=== PATIENT | female | born 1990 | race Caucasian/White ===

== ENCOUNTER 2024-02-11 10:50 | Outpatient (CLI) | payer BC, SELFPAY ==
--- NOTE | 2024-02-11 11:15 | CRLHL7_ITS ---
For Patients: As a result of the Century Cures Act, medical imaging exams and procedure reports are released immediately into your electronic medical record. You may view this report before your referring provider. If you have questions, please contact your health care provider. INDICATION: female infertility COMPARISON: none TECHNIQUE: 2D lau scale and color Doppler images were acquired of the pelvis using a transabdominal and transvaginal approach. FINDINGS: Sonographic images demonstrate a normal size and smooth outer contour of the uterus. Uterus measures 10.1 cm in length by 6.0 cm in AP diameter by 7.6 cm in transverse dimension. The myometrium has a normal uniform echotexture. The endometrial lining measures 22 mm in composite thickness. The right ovary measures 3.6 x 2.9 x 3.7 cm in size and the left ovary measures 3.3 x 2.1 x 2.0 cm. The ovaries demonstrate normal arterial and venous blood flow on color Doppler analysis. There are no suspicious fluid collections within the cul-de-sac. Simple cyst right ovary measures 2.5 x 2.1 x 2.2 cm. IMPRESSION: Endometrium diffusely thickened measuring 2.2 cm without endometrial fluid or uterine fibroid. Dictated by Farrukh Short MD @ 02/11/2024 11:42:45 AM (Electronically Signed)
== END 2024-02-11 10:51 | disposition home or self-care (01) ==
LOC: US 10:51
PROVIDERS: Visit Provider Registered Nurse
DX: N97.9 Female infertility, unspecified (principal); R93.89 Abnormal findings on diagnostic imaging of other specified body structures
CPT/HCPCS: 76830; 76856; 80061; 84144; 84443

== ENCOUNTER 2024-03-13 08:40 | Outpatient (CLI) | payer BC, SELFPAY | END 2024-03-13 08:41 | disposition home or self-care (01) | PROVIDERS: Visit Provider Registered Nurse | DX: N97.9 Female infertility, unspecified (principal) | CPT/HCPCS: 82670; 83001 ==

== ENCOUNTER 2024-03-31 13:35 | Outpatient (CLI) | payer BC, SELFPAY | END 2024-03-31 13:36 | disposition home or self-care (01) | LOC: NFLDREF 04-05 02:14 | PROVIDERS: Visit Provider Registered Nurse | DX: Z31.9 Encounter for procreative management, unspecified (principal) | CPT/HCPCS: 84144 ==

== ENCOUNTER 2024-04-21 13:22 | Outpatient (CLI) | payer BC, SELFPAY | END 2024-04-21 13:23 | disposition home or self-care (01) | PROVIDERS: Visit Provider Registered Nurse | DX: N97.9 Female infertility, unspecified (principal) | CPT/HCPCS: 84144 ==

== ENCOUNTER 2024-05-06 08:53 | Outpatient (CLI) | payer BC, SELFPAY ==
--- NOTE | 2024-05-06 09:15 | CRLHL7_ITS ---
For Patients: As a result of the Century Cures Act, medical imaging exams and procedure reports are released immediately into your electronic medical record. You may view this report before your referring provider. If you have questions, please contact your health care provider. Indication: INFERTILITY AND RECURRENT MISCARRIAGES Technique: Routine hysterosalpingogram. Fluoroscopic time 1.26 minutes IMPRESSION: No filling defect within the endometrial canal. Contrast extends through the fallopian tubes into the peritoneal cavity, left greater than right. Increased pressure required within the endometrial canal in order to visualize contrast through the fallopian tubes. Dictated by Farrukh Short MD @ 05/06/2024 12:33:49 PM (Electronically Signed)
--- NOTE | 2024-05-06 20:02 | P.GYNPRC_ITS ---
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 On fluoroscopy, Fallopian tubes are patent bilaterally and there is normal shape to uterine cavity Procedure Description: PROCEDURE: After obtaining verbal consent, the patient was placed in the dorsal lithotomy position on the x-ray table. An open-sided bivalve speculum was introduced into the vagina and the cervix easily visualized. The cervix and vagina were then prepped with Betadine. The anterior lip of the cervix was grasped with a single-tooth tenaculum for traction. A balloon tipped double- lumen catheter was then gently inserted through the cervical opening into the uterine cavity. The balloon was insufflated with 3 mL of air. The speculum was removed. The patient was repositioned in the supine position, covered, and the radiologist was called to the room. A hysterosalpingogram was then performed. A total of approximately 10 cc of Optiray 300 water soluble contrast dye was injected through the double-lumen catheter under more pressure than is usually required. There was immediate fill of the uterine cavity to the cornua; over time and additional injection of contrast dye, fill of both fallopian tubes and free spillage of dye on both sides was noted. The balloon was deflated. The catheter was removed. Tenaculum was also removed. The patient tolerated the procedure with some difficulty. She was discharged to home in stable condition and to [facility].
== END 2024-05-06 08:54 | disposition home or self-care (01) ==
LOC: RAD 08:53
PROVIDERS: Visit Provider Obstetrics & Gynecology
DX: N97.9 Female infertility, unspecified (principal); N96 Recurrent pregnancy loss; Z31.69 Encounter for other general counseling and advice on procreation
CPT/HCPCS: 58340; 74740; A4649; Q9967

== ENCOUNTER 2025-01-09 09:46 | Outpatient (CLI) | payer BC, SELFPAY | END 2025-01-09 09:47 | disposition home or self-care (01) | PROVIDERS: Visit Provider Obstetrics & Gynecology | DX: Z87.59 Personal history of other complications of pregnancy, childbirth and the puerperium (principal) | CPT/HCPCS: 84144; 84702 ==

== ENCOUNTER 2025-01-11 11:14 | Outpatient (CLI) | payer BC, SELFPAY ==
[2025-01-11 12:02] LABS: HCG Quantitative* 2699.50 mIU/mL
== END 2025-01-11 11:15 | disposition home or self-care (01) ==
PROVIDERS: Obstetrics & Gynecology; Visit Provider Obstetrics & Gynecology
DX: Z87.59 Personal history of other complications of pregnancy, childbirth and the puerperium (principal)
CPT/HCPCS: 36415; 84702

== ENCOUNTER 2025-01-15 11:41 | Outpatient (CLI) | payer BC, SELFPAY | END 2025-01-15 11:42 | disposition home or self-care (01) | LOC: NFLDREF 11:42 | PROVIDERS: Visit Provider Obstetrics & Gynecology | DX: Z87.59 Personal history of other complications of pregnancy, childbirth and the puerperium (principal) | CPT/HCPCS: 84702 ==

== ENCOUNTER 2025-01-27 12:16 | Outpatient (CLI) | payer BC, SELFPAY ==
--- NOTE | 2025-01-27 12:15 | CRLHL7_ITS ---
For Patients: As a result of the Cures Act, medical imaging exams and procedure reports are released immediately into your electronic medical record. You may view this report before your referring provider. If you have questions, please contact your health care provider. OB ULTRASOUND LESS THAN 14 WEEKS, 01/27/2025 CLINICAL HISTORY: Dating and viability. COMPARISON: None. TECHNIQUE: Realtime grayscale and color Doppler ultrasound of the uterus and ovaries from a transvaginal approach. Transvaginal ultrasound of the pelvis was performed to better evaluate the genitourinary organs such as the ovaries and/or endometrium. FINDINGS: Imaging: Transvaginal. LMP: 12/10/2024. AKIL by LMP: 09/16/2025. GA: 6 weeks 6 days. CRL: 1.1 cm, 7 weeks 1 day. AKIL 09/14/2025. FHR: 150 bpm. GEST SAC: 2.2 cm, appears WNL. YOLK SAC: 2.5 mm, appears WNL. RIGHT OV: 3.1 x 2.0 x 2.2 cm. CL. LEFT OV: 4.6 x 2.4 x 3.1 cm. IMPRESSION: Single living intrauterine measures 7 weeks 1 day with sonographic due date 09/14/2025. Farrukh Short M.D. Diagnostic Radiologist [email or web address] Transcribed: 1:57 pm DW/Dictated by: Farrukh Short MD @ 01/27/2025 1:06:00 PM (Electronically Signed)
== END 2025-01-27 12:17 | disposition home or self-care (01) ==
LOC: US 12:17
PROVIDERS: Visit Provider Registered Nurse
DX: Z34.91 Encounter for supervision of normal pregnancy, unspecified, first trimester (principal); Z3A.01 Less than 8 weeks gestation of pregnancy
CPT/HCPCS: 76817

== ENCOUNTER 2025-01-28 11:42 | Outpatient (CLI) | payer BC, SELFPAY ==
[2025-01-28 16:16] LABS: Chlamydia DNA Amplified* NOT DETECTED (No Detected); GC DNA Amplified* NOT DETECTED (No Detected)
== END 2025-01-28 11:43 | disposition home or self-care (01) ==
PROVIDERS: Visit Provider Registered Nurse
DX: Z34.91 Encounter for supervision of normal pregnancy, unspecified, first trimester (principal)
CPT/HCPCS: 82565; 82570; 83020; 83021; 84156; 84450; 84460; 84520; 85660; 86592; 86703; 86704; 86706; 86762; 86787; 86803; 86850; 86900; 86901; 87086; 87340; 87491; 87591

== ENCOUNTER 2025-02-03 10:10 | Outpatient (CLI) | payer BC, SELFPAY ==
--- NOTE | 2025-02-03 10:15 | CRLHL7_ITS ---
For Patients: As a result of the Century Cures Act, medical imaging exams and procedure reports are released immediately into your electronic medical record. You may view this report before your referring provider. If you have questions, please contact your health care provider. OB ULTRASOUND LESS THAN 14 WEEKS CLINICAL HISTORY: Follow-up dating. COMPARISON: 01/27/2025. TECHNIQUE: Real time lau scale imaging of the fetus was performed. Transabdominal imaging performed. FINDINGS: Imaging: Transabdominal. AKIL by US: 09/14/2025. GA: 7 weeks 1 day. CRL: 2.0 cm, 8 weeks 4 days. AKIL 09/11/2025. FHR: 161 bpm. GEST SAC: 3.5 cm, appears WNL. YOLK SAC: 3.6 mm, appears WNL. RIGHT OV: Not visualized. LEFT OV: 3.5 x 2.3 x 2.9 cm, WNL. IMPRESSION: 1. Single living intrauterine measures 8 weeks 4 days with a sonographic due date of 09/11/2025. 2. Subchorionic hemorrhage measures 10 x 8 x 10 mm . Farrukh Short M.D. Diagnostic Radiologist [email or web address] Transcribed: 12:20 pm DW/Dictated by: Farrukh Short MD @ 02/03/2025 11:09:00 AM (Electronically Signed)
== END 2025-02-03 10:11 | disposition home or self-care (01) ==
LOC: US 10:11
PROVIDERS: Visit Provider Registered Nurse
DX: O20.9 Hemorrhage in early pregnancy, unspecified (principal); Z3A.08 8 weeks gestation of pregnancy
CPT/HCPCS: 76801

== ENCOUNTER 2025-02-10 13:02 | Outpatient (CLI) | payer BC, SELFPAY | END 2025-02-10 13:03 | disposition home or self-care (01) | LOC: NFLDREF 13:03 | PROVIDERS: Visit Provider Registered Nurse | DX: R00.2 Palpitations (principal) | CPT/HCPCS: 84443 ==

== ENCOUNTER 2025-02-25 09:42 | Outpatient (CLI) | payer BC, SELFPAY | END 2025-02-25 09:43 | disposition home or self-care (01) | PROVIDERS: Visit Provider Obstetrics & Gynecology | DX: I10 Essential (primary) hypertension (principal) | CPT/HCPCS: 84450; 84460 ==

== ENCOUNTER 2025-03-04 11:59 | Outpatient (CLI) | payer BC, SELFPAY ==
--- NOTE | 2025-03-04 12:15 | CRLHL7_ITS ---
For Patients: As a result of the Cures Act, medical imaging exams and procedure reports are released immediately into your electronic medical record. You may view this report before your referring provider. If you have questions, please contact your health care provider. OBSTETRICAL ULTRASOUND TRANSABDOMINAL, 03/04/2025 CLINICAL INDICATION: Confirm viability. AKIL by ultrasound: 09/14/2025 Gestational age: 12 weeks 2 days Previous ultrasound: Yes, 02/03/2025 and 01/27/2025. 02/03/2025: AKIL by ultrasound: 09/11/2025 Gestational age: 8 weeks 4 days 01/27/2025: AKIL by ultrasound: 09/14/2025 Gestational age: 7 weeks 1 day TECHNIQUE: Real-time lau-scale imaging of the fetus was performed transabdominal. FINDINGS: CRL: 7.0 cm, 13 weeks 1 day; AKIL 09/08/2025 heart rate: 167 BPM Right ovary: 2.9 x 1.6 x 2.7 cm Left ovary: 4.2 x 2.2 x 4.0 cm IMPRESSION: Single living intrauterine measures 13 weeks 1 day with sonographic due date of 09/08/2025. FARRUKH MATHEWS M.D. Diagnostic Radiologist [email or web address] Transcribed: 6:[address]/Dictated by: Farrukh Mathews MD @ 03/04/2025 6:15:00 PM (Electronically Signed)
== END 2025-03-04 12:00 | disposition home or self-care (01) ==
LOC: US 11:59
PROVIDERS: Visit Provider Obstetrics & Gynecology
DX: Z34.91 Encounter for supervision of normal pregnancy, unspecified, first trimester (principal); Z3A.13 13 weeks gestation of pregnancy
CPT/HCPCS: 76816

== ENCOUNTER 2025-03-22 16:38 | Emergency (ER) | payer BC, SELFPAY ==
--- OUTSIDE RECORDS SUMMARY | 2025-03-22 16:42 | XMS_ITS | Clinical Summary ---
Author Organization [facility] Address [address] , [address] [place] [address] Phone Care Team Providers Care Nursing Home Assistant Name Role Phone Eli Montalvo Unavailable Conditions or Problems Problem Name Problem Code Onset Date Status Entry Date Provider Comment Standard Description Annotate Tinnitus 59114896 (SNOMED CT) Resolved Giovanni Camp MD Tinnitus Tinnitus, right 52202936 (SNOMED CT) Active Giovanni Camp MD Tinnitus Hearing loss, right ear 527395672 (SNOMED CT) Active Lianna Dumont Hearing loss of right ear Tinnitus 28152411 (SNOMED CT) Removed Giovanni Camp MD Tinnitus Hearing loss - Sudden onset 08832999 (SNOMED CT) Inactive Giovanni Camp MD Hearing loss Unsteady gait - 1 episode 95040955 (SNOMED CT) Active Giovanni Camp MD Unsteady when walking Paresthesia - randomly every where 28232967 (SNOMED CT) Active Giovanni Camp MD Paresthesia Vertigo 266275261 (SNOMED CT) Active Giovanni Camp MD Vertigo Migraine headache with aura 0949447 (SNOMED CT) Active Giovanni Camp MD Migraine with aura Medications Medication Instructions Start Date Stop Date Generic Name NDC Provider LORAZEPAM 1 MG TABS by mouth : 1 mg 2 hour before MRI. May repeat as needed with 1 mg up to maximum of 3 mg before MRI. No driving or operate heavy machinery for 24 hour after taking this med 6 lorazepam [id number] Giovanni Camp MD Medications Administered No information available. Allergies, Adverse Reactions, Alerts No information available. Results Date Name Value Unit Range Flag Description Office Visit: Office Visit francisco mallory with aura MRI done mar 2023 records MEDS REVIEW Done Documenta tion of current medications (procedure) Internal Other: Authorizatio n - OBS [email or web address] Yes Authoriza tion: Release of Information - Authorize [facility] - Payment and Healthcare Operations ROIAUTHOTHER Yes Authoriz ation: Release of Information - Authorize Others/Insurance - Payment and Healthcare Operations HIECONSENT Yes Consent To Release information to the Health Information Exchange (HIE) AUTHVMEMTM Yes Authorizat ion: Authorization for [facility] to leave messages, voicemail, send text messages, send emails AUTHRELHCARE Yes Authoriz ation: Release/Retrieval of Information to/from Healthcare Facilities, Pharmacy Benefit Payers and Providers AUTHPRIVPRAC Yes Authoriz ation: Notice of privacy practices AUTHBENEFIT Yes Authoriza tion: Assignment of Benefits and Payment Agreement Internal Other: Verbal Autho rization/Emergency Contact - OBS VERBAL_EMER Done Verbal au thorization and emergency contact Plan of Care Type Date Detail Pending order MRI-Thoracic W/W O MS Protocol Pending order MRI-Cervical W/W O MS Protocol Pending order MRI-Brain W/WO M S Protocol Pending order Follow up with N eurologist or ESTEVAN Pending order Follow up with N eurologist or [facility]AN Pending order MRI-Brain W/WO M S Protocol Pending order MRI-Cervical W/W O MS Protocol Pending order MRI-Thoracic W/W O MS Protocol Pending order Patient Instruct ions Pending order MRI-Brain W/WO M S Protocol Pending order MRI-Cervical W/W O MS Protocol Pending order MRI-Thoracic W/W O MS Protocol Pending order Follow up with N eurologist or ESTEVAN Pending order Patient Instruct ions Procedures Code Procedure Name Date Entry Date [facility]-[id number] Documentation of current medicatio ns ORDERS Patient Instructions Vital Signs No information available. Immunizations No information available. Advance Directives No information available.
--- OUTSIDE RECORDS SUMMARY | 2025-03-22 16:43 | XMS_ITS | Encounter Summary ---
Author Organization [facility] Address [address] [place] [address] Care Team Providers Care Fire Control Technician G Name Role Phone Kirit Flannery M.D. Primary Care Provider Encounter Details Date Type Department Care Team (Late st Contact Info) Description 03/05/2017 Historical Ophthalmology [facility] Arpit Kurtz M.D. [address] [phone] Social History Tobacco Use Types Packs/Day Years Used Date Smoking Tobacco: Never Comments Unknown Sex and Gender Information Value Date Recorded Sex Assigned at Female 07/02/2017 7:55 PM EYELET ROW MARKER Legal Sex Female 6:53 PM EYELET ROW MARKER Gender Identity Female 07/02/2017 7:55 PM EYELET ROW MARKER Sexual Orientation Straight 07/02/2017 7: 55 PM EYELET ROW MARKER documented as of this encounter Progress Notes * Arpit Kurtz M.D. - 03/05/2017 10:37 AM CDT Eye General CHIEF COMPLAINT work in HISTORY OF PRESENT ILLNESS Wears contacts (Seismo-Shelf 8.2 14.2 -8.50 both) Saw Dr[address] Flannery this moring and was referred here. Is seeing a Ball of Light like an arch over the top portion of her vision in her left eye. Lasts for just a second. Usually sees it in the dark. Just happens periodically. The light looks orange. Also has a lot of floaters. Can't tell for sure which eye they are in, seems like mostly in the RT eye. in last 2 months notices floaters in right more Started 8-9 months ago. Did not come is [place] she was . 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 RTc 4 months dilation DIAGNOSIS #1 Lattice degeneration CDM Reports - EYEGEN Id: [id number] Status: Fnl documented in this encounter Plan of Treatment Upcoming Encounters Date Type Department Care Team (Latest Contact Info) Description 04/15/2025 3:00 PM EYELET ROW MARKER Clinical Communication Virtual Review in [place], [place] [address] [place] [address] 04/16/2025 9:00 AM EYELET ROW MARKER Comprehensive Visit Division of Allergic Diseases in [place], [place] [address] [place] [phone] Ken Fulton M.D. [address] [place] [phone] documented as of this encounter Visit Diagnoses Not on filedocumented in this encounter Additional Health Concerns Infection Onset Date Last Indicated Resolved Time COVID19 Pending 09/13/2020 09/13/2020 09/13/2020 9 :51 PM CDT COVID19 Pending 10/02/2020 10/03/2020 10/04/2020 1 2:22 PM CDT COVID19 Pending 01/24/2021 01/24/2021 01/25/2021 2 :00 AM CDT COVID19 01/24/2021 01/24/2021 02/13/2021 4:45 AM CDT COVID19 Pending 06/09/2021 06/09/2021 06/10/2021 3 :43 AM EYELET ROW MARKER COVID19 06/09/2021 06/09/2021 06/29/2021 5:55 AM EYELET ROW MARKER COVID19 Pending 07/27/2022 07/27/2022 07/27/2022 1 0:31 AM EYELET ROW MARKER COVID19 Pending 06/26/2023 06/26/2023 06/26/2023 7 :15 PM EYELET ROW MARKER Assessment Noted Time PHQ-9 Depression Total Score: 5 10/28/19 17 7:35 AM CDT documented as of this encounter Care Teams Fire Control Technician G Relationship Specialty Start Date End Date Kirit Flannery M.D. [address] [place] [phone] PCP - General 11/09/16 documented as of this encounter
--- OUTSIDE RECORDS SUMMARY | 2025-03-22 16:43 | XMS_ITS | Patient Health Record ---
Author Organization [facility] Address [address] [place] [address] Care Team Providers Care Pearl Peller Name Role Phone Needed, Needed Primary Care Provider OLGA Villalba [phone] Allergies Allergen (clinical drug ingredient) Drug/Non Drug Allergy documented on EMR Reaction Allergy Type Onset Date Status clindamycin Clindamycin Unknown Drug Allergy Act michelle Penicillin Unknown Drug Allergy Active Reason For Referral No Information Social History Tobacco Use: Social History Observation Description Date Details (start date - stop date) Never Smoker NA - NA Social History Alcohol Use: Social Info Question Answer Notes Recreational drugs Have you used drugs other than those for medical reasons in the past 12 months? No Alcohol Screen Did you have a drink containing alcohol in the past year? Yes How often did you have a drink containing alcohol in the past year? Monthly or less (1 point) How many drinks did you have on a typical day when you were drinking in the past year? 1 or 2 drinks (0 point) How often did you have 6 or more drinks on one occasion in the past year? Never (0 point) Points 1 Interpretation Negative Tobacco Use: Social Info Question Answer Notes Tobacco use/smoking Are you a nonsmoker Problems Problem Type SNOMED Code ICD Code Onset Dates Problem Status W/U Status Risk Notes Problem Dizziness (720922126) Dizziness (R42) Active confirmed Problem Ear pressure, right (H93.8X1) Active confirmed Problem Peripheral vertigo (81847383) Vertigo, peripheral, right (H81.391) Active confirmed Problem Bilateral tinnitus (0116384211576) Tinnitus, bilateral (H93.13) Active confirmed Problem Abnormal auditory perception (85743300) Other abnormal auditory perceptions, right ear (H93.291) Active confirmed Plan Of Treatment No Information Insurance Providers Payer Name Payer Address Payer Phone Subscriber Number Group Number Insured Name Patient Relationship to Insured Coverage Start Date Coverage End Date [facility] [address] [address] [place] [phone] [id number] Mary Colón Self - patient is the insured Medical (General) History Surgical History Surgery Date(Month/Year) 2 C-Sections Tonsillectomy Hospitalization History Reason Date(Month/Year) Same as Surgical history
--- OUTSIDE RECORDS SUMMARY | 2025-03-22 16:43 | XMS_ITS | Encounter Summary ---
Author Organization [facility] Address [address] [place] [id number] Care Team Providers Care Loss Prevention Lead Name Role Phone Kirit Flannery M.D. Primary Care Provider [phone] Reason for Visit * Reason Onset Date Comments Pre-visit Testing Orders 02/20/2025 Encounter Details Date Type Department Care Team (Latest Contact Info) Description 02/20/2025 Clinical Communication Division of Allergic Diseases in [place], [place] [address] [place] [address] Ken Fulton M.D. [address] [place] [phone] Pre-visit Testing Orders Social History Tobacco Use Types Packs/Day Years Used Date Smoking Tobacco: Never Smokeless Tobacco: Never Alcohol Use Standard Drinks/Week Comments Not Currently 0 (1 standard drink = 0.6 oz pur e alcohol) prior:[facility] Utilities Answer Date Recorded In the past 12 months has th e [employer], gas, oil, or water [employer] threatened to shut off services in your home? No 09/01/2024 Humiliation, Afraid, Rape, and Kick questionnair e Answer Date Recorded Within the last year, have y ou been afraid of your partner or ex-partner? No 01/08/2023 Within the last year, have y ou been humiliated or emotionally abused in other ways by your partner or ex-partner? No Within the last year, have y ou been kicked, hit, slapped, or otherwise physically hurt by your partner or ex-partner? No 01/08/2023 Within the last year, have y ou been raped or forced to have any kind of sexual activity by your partner or ex-partner? No 01/08/2023 Hunger Vital Sign Answer Date Recorded Within the past 12 months, y ou worried that your food would run out before you got the money to buy more. Never true 09/02/19 25 Within the past 12 months, t he food you bought just didn't last and you didn't have money to get more. Never true 09/01/2024 PRAPARE - Transportation Answer Date Re corded In the past 12 months, has l ack of transportation kept you from medical appointments or from getting medications? No 11/2024 In the past 12 months, has l ack of transportation kept you from meetings, work, or from getting things needed for daily living? No 09/01/2024 Depression Answer Date Recor ded PHQ-9 Total Score (max 27) 2 10/09 Housing Stability Answer Date Recorded What is your living situation today? I have a [facility] place to live 09/01/2024 Education Answer Date Recorded What is the highest level of school you have completed or the highest degree you have received? 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 [address] [place] [phone] documented as of this encounter Visit Diagnoses Not on filedocumented in this encounter Additional Health Concerns Assessment Noted Time PHQ-9 Depression Total Score: 2 10/10/19 24 3:24 PM CDT documented as of this encounter Care Teams Loss Prevention Lead Relationship Specialty Start Date End Date Kirit Flannery M.D. [address] [place] [phone] PCP - General 11/09/16 documented as of this encounter
--- OUTSIDE RECORDS SUMMARY | 2025-03-22 16:43 | XMS_ITS | Encounter Summary ---
Author Organization [facility] Address [address] [place] [address] Care Team Providers Care Negotiator Sales Name Role Phone Kirit Flannery M.D. Primary Care Provider [phone] Encounter Details Date Type Department Care Team (Late st Contact Info) Description 03/04/2025 Orders Only [facility] Kirit Flannery M.D. [address] [phone] Screening Lipid Social History Tobacco Use Types Packs/Day Years Used Date Smoking Tobacco: Never Smokeless Tobacco: Never Alcohol Use Standard Drinks/Week Comments Not Currently 0 (1 standard drink = 0.6 oz pur e alcohol) prior:[facility] Utilities Answer Date Recorded In the past 12 months has th e [employer], gas, oil, or water [employer] threatened to shut off services in your [...] your living situation today? I have a [facility] place to live 09/01/2024 Education Answer Date Recorded What is the highest level of school you have completed or the highest degree you have received? 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 [address] [place] [phone] Scheduled Orders Name Type Priority Associated Diagnoses Orde r Schedule Lipid Panel Lab Routine Screening Lipid Expected: 03/18/2025, Expires: 08/21/2025 documented as of this encounter Visit Diagnoses Diagnosis Screening Lipid documented in this encounter Additional Health Concerns Assessment Noted Time PHQ-9 Depression Total Score: 2 10/10/19 24 3:24 PM CDT documented as of this encounter Care Teams Negotiator Sales Relationship Specialty Start Date End Date Kirit Flannery M.D. [address] [phone] PCP - General 11/09/16 documented as of this encounter
--- OUTSIDE RECORDS SUMMARY | 2025-03-22 16:43 | XMS_ITS ---
Author Organization [facility] Source Produ ction (ClinicalSummary Clone) Address Unknown Care Team Providers Care Nurse Informatics Educator Name Role Phone Unavailable Primary Care Physician Unavailab le Results * [UNITY] CARRIER SCREEN Performed by: [employer] Component Value Range Date Sickle Cell Disease/Beta-Thalassemia/Hemo globinopathies carrier screen NEGATIVE 03/07/2025 06:42 am [facility] Alpha-Thalassemia carrier screen NEGATIVE 03/07/2025 06:42 am [facility] Cystic Fibrosis carrier screen NEGATIVE 03/07/2025 06:42 am [facility] Spinal Muscular Atrophy carrier screen NEGATIVE 2 SMN1 copies, SNP not present 03/07/2025 06:42 am [facility] For detailed report, see PDF See PDF 03/07/2025 06:42 am [place] 03/07/2025 06:4 2 am [facility] Social History Observation Value Start Date End Date
--- OUTSIDE RECORDS SUMMARY | 2025-03-22 16:43 | XMS_ITS ---
Author Organization [facility] Source Produ ction (ClinicalSummary Clone) Address Unknown Care Team Providers Care Pharmacovigilance Scientist Name Role Phone Unavailable Primary Care Physician Unavailab le Results * [UNITY] ANEUPLOIDY NIPT Performed by: Fleksy. Component Value Range Date Fraction 6.8% 03/03/2025 03 :32 am [facility] Sex Chromosome Aneuploidy NOT DETECTED 03:32 am [facility] Monosomy X LOW RISK <1 in 10,000 2024 03:32 am UTC Trisomy 13 LOW RISK <1 in 10,000 2024 03:32 am UTC Trisomy 18 LOW RISK <1 in 10,000 2024 03:32 am UTC Trisomy 21 LOW RISK <1 in 10,000 2024 03:32 am [place] Sex FEMALE 03/03/2025 03:3 2 am UTC Gestation PETERS 03/03/20 03:32 am [place] For detailed report, see PDF See PDF 03/03/2025 03:32 am UTC 03/03/2025 03:3 2 am [facility] Social History Observation Value Start Date End Date
--- OUTSIDE RECORDS SUMMARY | 2025-03-22 16:43 | XMS_ITS | Clinical Summary ---
Author Organization [facility] Address [address] [place] [id number] Care Team Providers Care Relay Assembler Name Role Phone Kirit Flannery MD Primary Care Provider + Allergies Active Allergy Reactions Criticality Noted Date Comments Clindamycin Palpitations,Other - Describe In Comment Field Medium 07/16/2020 Pt aware this is not a true allergic reaction. Palpations Pt aware this is not a true allergic reaction. Penicillins Rash,Hives 10/15/2007 Medications * This document contains information received from the source organization and may not represent a complete record from that organization. FEROSUL 325 mg (65 mg iron) tablet Take 325 mg by mouth once daily with a meal. 0 Active vits96/iron fum/folic ( VITAMIN WITH FOLIC ACID) tablet Take 1 Tab by mouth. Active Breast Pump - PurchaseIndicat ions:S/P section Gestation age at delivery: 39 weeks. Reason for need: . Length of need: 12 months 1 Device 0 Active ibuprofen (ADVIL; MOTRIN) 600 mg tabletIndicatio ns:S/P section Take 1 tablet by mouth every 6 hours. Maximum of 3200 mg in 24 hours. 30 tablet 09/12/2019 9:30 AM CDT 0 Active lanolin (LANSINOH) topicalIndicati ons:S/P section Apply peasized amount to entire nipple area after each feeding and leave on, no need to wash off before . 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 Obesity with body mass index 30 or greater 01/18 Anemia 09/21/2019 Cellulitis of abdominal wall 09/20/2019 Rectus sheath hematoma 09/20/2019 delivery delivered 09/09/2019 Anxiety 07/01/2008 Resolved Problems Problem Noted Date Diagnosed Date Resolved Date S/P section 09/05/2016 020 Bloody stool 09/28/2013 09/20/2019 Immunizations Immunization Administration Dates Next Due Hepatitis B, Unspecified 01/22/2003,09/11/2002,0 01/23/2002 Human Papilloma Virus Vaccine 02/19/2014 Influenza Virus, Unspecified 04/16/2010, 03/20/2006,05/02/2005,2003 MMR 09/12/2019(),01/23/2002 Td, Preservative Free (age > = 7 Years) 09/11/2002 Tdap 07/07/2016 Family History Medical History Relation Name Comments No Known Problems Daughter Born 09/05. Heart Disease Father Her father d at age 5959 years old of an MD. Smoker. Psychiatric illness Mother Nonsmoke r. Anxiety. Heart Disease Paternal Grandfather Relation Name Status Comments Daughter Alive Father Mother Alive Paternal Grandfather Social History Tobacco Use Types Packs/Day Years Used Date Smoking Tobacco: Former Passive Smoke Exposure: Past Smokeless Tobacco: Never Tobacco Cessation:Counseling Given: Yes Comments:She smoked for one month at 15 years old. Alcohol Use Standard Drinks/Week Comments Not Currently 0 (1 standard drink = 0.6 oz pur e alcohol) Rarely Interpersonal Safety Answer Date Record ed Are you being hit, kicked, p ushed or yelled at (see row info)? No 07/04/2023 Interpersonal Safety Abuse 12 - 18 Not on file 07/04/2023 Interpersonal Safety Ambulatory Vulnerability No t on file 07/04/2023 Comments Unknown Sex and Gender Information Value Date Recorded Sex Assigned at Not on file Legal Sex Female 6:59 AM REEXAMINER Gender Identity Not on file Sexual Orientation Not on file Obstetrics History Para Term AB IAB SAB Ectopic Multiple Livin g Live Births 4 2 2 0 0 0 0 0 0 2 2 Date Outcome GA Total Labor Labor/2nd/3rd Weight Sex Type Anes PTL Nadya A1 A5 Name Clin 2016 Term 39w 5d 4.31 kg (9 lb 8 oz) F C-Sec tion Spinal N Livin g 7 7 MALMQ UIST, BG KRUT herrera Complications:None Delivery Location:[facility] 2019 Term 39w 1d 0h 01m 4.16 kg (9 lb 2.7 oz) M C-Sec tion Spinal N Livin g 9 9 MALMQ UIST, BB KURT ARELLANO Complications:None Delivery Location:[facility] ([facility] Last Filed Vital Signs Vital Sign Reading Time Taken Comments Blood Pressure 139/98 07/04/2023 6:31 PM REEXAMINER Pulse 108 07/04/2023 6:31 PM REEXAMINER Temperature 37.7 C (99.9 F) 07/04/2023 6:31 PM REEXAMINER Respiratory Rate 16 07/04/2023 7:40 PM REEXAMINER Oxygen Saturation 98% 07/04/2023 6:31 PM REEXAMINER Inhaled Oxygen Concentration - - Weight 102.1 kg (225 lb) 07/04/2023 6:58 PM REEXAMINER Height 160 cm (5' 3) 07/04/2023 6:58 PM REEXAMINER Body Mass Index 39.86 07/04/2023 6:58 PM REEXAMINER Plan of Treatment Health Maintenance Due Date Last Done Comments Depression screening for age 12+ 2001 HIV for age 15-65 2004 Hepatitis C screening for age 18-79 10/17/2007 Pap test for age 21-65 2010 HPV series for age 9-45 (2 - 3-dose series) 03/19/2014 02/19/2014 BMI (ht and wt on same day) for age 18+ 09/02/2017 09/02/2016, 08/31/2016, 08/19/2016, Additional history exists COVID-19 vaccine series ( - season) 2025 Influenza Vaccine (#1) 2025 0, 03/20/2006, 05/02/2005, Additional history exists Tetanus booster 07/07/2026 07/07/2016, 09/11/2002 RSV vaccine for adults or (1 - 1-dose 75+ series) 2064 Hepatitis B series for 19+ Completed 01/22, 09/11/2002, 01/23/2002 Pneumococcal series for age 6-49 Aged Out No longer eligible based on patient's age to complete this topic Insurance [facility] Advance Directives * Full Code (Latest Code Status on File) Date Activated Date Inactivated Comments 09/20/2019 12:51 PM 09/24/2019 4:27 PM * Full Code Date Activated Date Inactivated Comments 09/09/2019 5:55 AM 09/12/2019 2:43 PM Question Answer Comments Code Status Discussion: Discussed * Full Code Date Activated Date Inactivated Comments 09/05/2016 10:06 AM 09/08/2016 5:55 PM * Full Code Date Activated Date Inactivated Comments 09/05/2016 7:09 AM 09/05/2016 10:04 AM * Full Code Date Activated Date Inactivated Comments 09/02/2016 9:37 PM 09/02/2016 11:02 PM Question Answer Comments Code Status Discussion: Not Discussed Care Teams Relay Assembler Relationship Specialty Start Date End Date Kirit Flannery MD PCP - General 09/17/09
--- OUTSIDE RECORDS SUMMARY | 2025-03-22 16:43 | XMS_ITS | Clinical Summary ---
Author Organization [facility] Address [address] [place] [address] Care Team Providers Care Scholarship Counselor Name Role Phone Kirit Flannery M.D. Primary Care Provider [phone] Source Comments Patient records contain information from all sites at [facility]. For routine questions regarding patient records, call [phone] during business hours, M-F 8:00 AM - 5:00 PM Central Time. Record requests for emergency care only can be directed to [phone] at any time.[facility] Allergies Active Allergy Reactions Criticality Noted Date Comments Clindamycin Other (see comments),Palpitations Medium 07/16/2020 Palpations Pt aware this is not a true allergic reaction. Penicillins Hives (Reselect Reaction) 10/15/2007 Medications * This document contains information received from the source organization and may not represent a complete record from that organization. cholecalciferol (VITAMIN D3) 10 mcg (400 Unit) tablet Take 10 mcg by mouth daily. Active Lactobacillus acidophilus capsule Take 1 capsule by mouth as needed. Active acetaminophen (TYLENOL) 500 mg tablet Take 2 tablets (1,000 mg total) by mouth every 6 (six) hours as needed for pain. Alternate with ibuprofen every 3 hours. Do not exceed 4000 mg or 4 g in 24 hours. 4 Active ibuprofen (ADVIL,MOTRIN) 200 mg tablet Take 3 tablets (600 mg total) by mouth every 6 (six) hours as needed for pain. Alternate with acetaminophen every 3 hours. 4 Active SUMAtriptan (IMITREX) 100 mg tablet Take 1 tablet (100 mg total) by mouth as needed for migraine. May repeat dose once in 2 hours if migraine is unresolved. Do not exceed 200 mg in 24 hours. 9 tablet 3 4 Active Additional Information Patient not taking.Reported on 09/01/2024 fluticasone propionate (Flonase) 50 mcg/actuation nasal sprayIndication s:Sinusitis Administer 2 sprays into each nostril daily. 16 g 5 Active Additional Information Patient not taking.Reported on 09/01/2024 Active Problems Patient Care Coordination No te Formatting of this note migh t be different from the original. Date of confirmed loss by formal US: 08/20/23, measuring 11 5/7 weeks. Bereavement / Educational materials given: No - Care After Early Loss - Crystal---memento - Early Loss and Grief for Parents - Success Directions - Success Picture - and Loss Support Group - Surgical Checklist (for D&C only)- Sent via portal - Dilation & Curettage (D&C)- Sent via portal Supplies given with pathology sticker (bottles for POC, etc): No Future pathology order placed: No Genetics: Discussed, but unsure. Genetics CPT code given 08/20 RH positive Plan: D&C D&C on 08/23/23 Location: [facility]. Patient understands NPO instructions and to present to [facility] at 0600. Problem Noted Date Diagnosed Date Maternal Care For Other Type Scar From Previous Delivery 07/26/2023 Overview (07/26/2023): Scheduled repeat desired. Her last was complicated by postoperative hematoma, wound infection, requiring hospitalization, IV antibiotics, incision and drainage, and packing. Counseling Sterilization 07/26/2023 Overview (07/26/2023): Patient desires permanent sterilization at time of repeat . Encounter For Supervision Of Other Normal Unspecified Trimester 07/17/2023 Overview (08/20/2023): (CD X2; repeat desired) FOB: Sage Dating criteria: LMP with 7 week u/s Rh: A+ Ab: neg Rubella: Immune in 2016 Pap smear: neg/neg 05/10/23 Aneuploid screening: discussed, declined Carrier screening: discussed, declined Influenza vaccine: declined Anatomy Scan: 1 hr GTT: plan to do early at 20 weeks and repeat at 28 weeks if normal (elevated A1C at NOB) Tdap: Presentation at 36 wks: GBS: PPBC: unsure if desires tubal ligation At next visit: follow up e-consult Heme recs issues: Hx C/S x2- plan for RCS at 39w PCN allergy- rash as a baby, has tolerated cephalosporins, will plan to give Ancef preop Obesity, BMI 39 (102 kg) at start of preg- rec 11-20 lb weight gain Heme e-consult for anemia, neutropenia, large platelets on NOB labs iron deficiency anemia- on iron supplementation Anxiety related to previous miscarriage in Fall 2022 Hx complex wound complication after last delivery Elevated Glucose 07/17/2023 Allergy Penicillin Antibiotic Personal History 0 07/04/2023 Overview (07/26/2023): Consult ordered 07/26/2023 She would like to check with insurance regarding coverage Ophthalmoplegic Migraine Not Intractable 023 Obesity Body Mass Index 30-39.9 Adult 01/18/2021 Disruption Wound Section Overview (07/26/2023): After last delivery: hematoma>secondary infection> admit for I&D, iv antibiotics: cellulitis of her section wound and a rectus sheath hematoma. She was admitted 09/20/19 - 09/24/19 and treated with IV antibiotics and transfusion of 1 unit of PRBC due to anemia (please see the discharge summary for details). Her cellulitis, fever, and leukocytosis resolved, as her incision continued to have serosanguinous drainage without purulence, and she was transitioned to PO Bactrim DS BID for 10 days and discharged. She returns today for follow up evaluation of her wound, which continues to drain clear fluid without purulence or odor and she is wearing a pad over the incision trying to keep it dry. Section Delivery 09/09/2019 Acne Cystic 03/11/2015 Depression Anxiety 07/01/2008 Resolved Problems Problem Noted Date Diagnosed Date Resolved Date Missed 08/21/2023 12/13/2023 Pharyngitis Streptococcal 07/05/2023 Overview (07/05/2023): Azithromycin due to allergy Encounter For Supervision Of Normal Unspecified Trimester 04/21/2019 03/12/2020 Overview (07/20/2019): G 2 P 1, for malpresentation) /FOB: Sage Rubella equivocal, Rh A positive anatomy scan: Normal, gender is male OGTT: Pass 129 Hb: 9.4 on oral iron replacement GBS: Tdap on: declined 06-25-2019 Influenza on: declined 06-25-2019 PP contraception plans: Issues: Needs MMR . Desires TOLAC Maternal Care For Low Transv erse Scar From Previous Delivery 03/15/2017 03/12/2020 Overview (07/23/2019): (C) Section Delivery Consultation: 07/23/2019 calculated success: Calculated success by Dr. Parrish 55.6% on 07/11/2019, BMI 41; MLM calculation 07/23/19 57.1% Number of previous cesareans: 1 Reason for (s): Malpresentation/breech Date of most recent : 08/2016, reported by Dr. Hein in [place] to be LTCS Operative note available: Note under Document Viewer reviewed, double layer closure, low transverse c/s Operative note reviewed and findings: Reviewed, she is a candidate for TOLAC Risks/benefits discussed in detail including uterine rupture rate < 1% prior to labor, increased to 2-3% with Pitocin; possibility of need for emergent c/s with risk of injury to surrounding structures (bowel, bladder, blood vessels); possible need for blood products, HIE risk 8/10,000 VBACs, maternal risk 2-3/10,000 VBACs. pamphlet given. Pt concerned that fetus is 2276 gms or 5 lbs on 07/23/19 at 32 weeks and has hx LGA fetus last . Tonsillectomy Status Post 03/15/2017 History Of Uterine Scar From Previous Surgery 09/06/19 17 03/12/2020 Attention Deficit Disorder Combined Type 08/30/2015 07/16/2020 Overview (10/17/2016): Disorder Attention Deficit (ADHD) Combined Type Hypertriglyceridemia 08/25/2010 021 Tachycardia Supraventricular Paroxysmal 05/24/2010 12/22/2021 Overview (10/17/2016): Paroxysmal supraventricular tachycardia (PSVT) Major Depressive Disorder Si ngle Episode Unspecified 09/04/2007 03/12/2020 Overview (10/17/2016): Depression Major NOS Encounters Date Type Department Care Team Description 03/04/2025 Orders Only [facility] MNT Kirit Flannery M.D. Screening Lipid 02/20/2025 Clinical Communication Division of Allergic Diseases in [place], [place] [address] [place] [address] Ken Fulton M.D. Pre-visit Testing Orders from Last 3 Months Immunizations Immunization Administration Dates Next Due 4vHPV (discontinued) 02/19/2014 HepB, Unspecified 01/22/2003,09/11/2002,01/24/20 02 Influenza Split 03/20/2006,05/02/2005,05/16/2004 Influenza, Unspecified 04/16/2010,2005,05/02/2005,2003 MMR 01/23/2002 Td Preservative Free (TENIVA C, DECAVAC) 09/11/2002 Tdap 07/07/2016 Family History Medical History Relation Name Comments Acne Brother 1 ADD / ADHD Brother 2 No Known Problems Daughter Anxiety disorder Father Durward Coronary artery disease Father Durward Heart attack Father Durward Heart disease Father Durward Hyperlipidemia (high cholesterol) Father Durward Hypertension Father Durward Emphysema Maternal Grandfather No Known Problems Maternal Grandmother Acne Mother Carmelita Anxiety disorder Mother Carmelita Breast cancer (in one breast) Mother Carmelita Depression Mother Carmelita Diabetes Mother Carmelita Type 2 Sleep apnea Mother Carmelita Heart disease Paternal Grandfather Kermit Relation Name Status Comments Brother 1 Alive Brother 2 Alive Daughter Alive Father Durward Maternal Grandfather Maternal Grandmother Alive Mother Carmelita Alive Paternal Grandfather Kermit Paternal Grandmother Passed of old age Social History Tobacco Use Types Packs/Day Years Used Date Smoking Tobacco: Never Smokeless Tobacco: Never Tobacco Cessation:Counseling Given: Not Answered Alcohol Use Standard Drinks/Week Comments Not Currently 0 (1 standard drink = 0.6 oz pur e alcohol) prior:[facility] Utilities Answer Date Recorded In the past 12 months has th e electric, gas, oil, or water company threatened to shut off services in your [...] your living situation today? I have a [facility] place to live 09/01/2024 Education Answer Date Recorded What is the highest level of school you have completed or the highest degree you have received? 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 on file Not on file Not on file Last Filed Vital Signs Vital Sign Reading Time Taken Comments Blood Pressure 114/77 09/01/2024 9:18 AM CDT Pulse 81 09/01/2024 9:18 AM CDT Temperature 36.4 C (97.5 F) 09/01/2024 9:18 AM CDT Respiratory Rate 16 07/18/2024 12:53 PM REAL ESTATE BRANCH MANAGER Oxygen Saturation 97% 08/23/2023 12:00 PM CDT Inhaled Oxygen Concentration - - Weight 102 kg (225 lb 1.4 oz) 09/01/2024 9:18 AM CDT Height 160.3 cm (5' 3.11) 09/01/2024 9:18 AM CD T Body Mass Index 39.73 09/01/2024 9:18 AM CDT Plan of Treatment Upcoming Encounters Date Type Department Care Team (Latest Contact Info) Description 04/15/2025 3:00 PM REAL ESTATE BRANCH MANAGER Clinical Communication Virtual Review in [place], [place] [address] [place] [address] 04/16/2025 9:00 AM REAL ESTATE BRANCH MANAGER Comprehensive Visit Division of Allergic Diseases in [place], [place] [address] [place] [phone] Ken Fulton M.D. [address] [place] [phone] Health Maintenance Due Date Last Done Comments HPV Vaccines (2 - 3-dose series) 03/19/2014 02/19/2014 Fasting Glucose for Diabetes Screening 11/18/2024 11/19/2023, 10/10/2023, 07/17/2023, Additional history exists COVID-19 Vaccine ( season) 2025 Influenza Vaccine (#1) 2025 0, 03/20/2006, 03/20/2006, Additional history exists Lipid (Cholesterol) Screening 03/12/2025 03/12/2020, 10/23/2017, 07/15/2014 DTaP,Tdap,and Td Vaccines (3 - Td or Tdap) 07/07/2026 07/07/2016, 09/11/2002 Cervical/Vaginal Cancer Screening 05/10/2028 05/10/2023, 05/10/2023, 01/31/2019, Additional history exists Hepatitis B Vaccines Completed 01/22/2003, 09/11/2002, 01/23/2002 HIV Screening Completed 07/17/2023, 07/2018, 01/18/2016 Hepatitis C Screening Completed 07/17/2023 Depression Screening (Annual PHQ-2) Completed 09/01/2024, 09/01/2024 IPV Vaccines Aged Out No longer eligi ble based on patient's age to complete this topic Pneumococcal vaccine (0-49 years) Aged Out No longer eligible based on patient's age to complete this topic Procedures Procedure Name Priority Date/Time Associated Diagnosis Comments COMPREHENSIVE METABOLIC PANEL, S/P Routine 11/19/2023 5:02 PM CDT Tinnitus Bilateral Vertigo Benign Paroxysmal Positional Bilateral Fasciculation Benign HCV AB SCRN , S Routine 07/17/2023 11:49 AM REAL ESTATE BRANCH MANAGER Encounter For Supervision Of Other Normal Unspecified Trimester (HCC) HIV-1/-2 AG AND AB SCRN, PLASMA Routine 07/17/2023 11:49 AM REAL ESTATE BRANCH MANAGER Encounter For Supervision Of Other Normal Unspecified Trimester (HCC) HPV WITH GENOTYPING, PCR, THINPREP Routine 05/10/2023 10:43 AM REAL ESTATE BRANCH MANAGER LIPID PANEL, S Routine 03/12/2020 12:25 PM CDT Fatty Liver from Last 3 Months or Most Recently Relevant to Health Maintenance Results * Comprehensive Metabolic Panel (11/19/2023 5:02 PM CDT) Pathologist [facility] Potassium, P 4.3 3.6 - 5.2 mmol/L 11/19/2023 5:29 PM CDT OWAT Sodium, P 137 135 - 145 mmol/L 11/19/2023 5:29 PM CDT OWAT Chloride, P 103 98 - 107 mmol/L 11/19/2023 5:29 PM CDT OWAT Bicarbonate, P 25 22 - 29 mmol/L 11/19/2023 5:29 PM CDT OWAT Anion Gap, P 9 7 - 15 11/19/2023 5:29 PM CDT OWAT BUN (Blood Urea Nitrogen), P 9 6 - 21 mg/dL 11/19/2023 5:29 PM CDT OWAT Creatinine 0.64 0.59 - 1.04 mg/dL 11/19/2023 5:29 PM CDT OWAT Estimated GFR (eGFR) >90 >=60 mL/min/BS A 11/19/2023 5:29 PM CDT OWAT Comment: Estimated GFR calculated using the 2020 CKD_EPI creatinine equation. Calcium, Total, P 9.3 8.6 - 10.0 mg/dL 11/19/2023 5:29 PM CDT OWAT Glucose, P 97 70 - 140 mg/dL 11/19/2023 5:29 PM CDT OWAT Protein, Total, P 7.4 6.3 - 7.9 g/dL 11/19/2023 5:29 PM CDT OWAT Albumin, P 4.5 3.5 - 5.0 g/dL 11/19/2023 5:29 PM CDT OWAT Aspartate Aminotransferase (AST), P 30 8 - 43 U/L 11/19/2023 5:29 PM CDT OWAT Alkaline Phosphatase, P 62 35 - 104 U/L 11/19/2023 5:29 PM CDT OWAT Alanine Aminotransferase (ALT), P 34 7 - 45 U/L 11/19/2023 5:29 PM CDT OWAT Bilirubin, Total, P 0.3 0.0 - 1.2 mg/dL 11/19/2023 5:29 PM CDT OWAT Blood (Blood, Venous) 11/19/2023 5:02 PM CDT 11/19/2023 5:03 PM CDT us Kirit Flannery M.D. LAB BLOOD ADD-ON Final Resu lt [facility] [address] [place] [address], [place] OW[place] [facility] [place] [facility] [place] [address] [place] [address] * Hepatitis C Virus Antibody Screen (07/17/2023 11:49 AM REAL ESTATE BRANCH MANAGER) HCV Ab Scrn , S Negative Negative 07/18/2023 9:19 AM REAL ESTATE BRANCH MANAGER [facility] Comment:[id number] rat io is <1.00. Blood (Blood, Venous) 07/17/2023 11:49 AM REAL ESTATE BRANCH MANAGER 07/18/2023 7:32 AM REAL ESTATE BRANCH MANAGER us Alison Urbina APRN, C.N.P. LAB MICROBIOLOGY - BLOOD ORDERABLES Final Result [facility] [address] [place] [address] [facility] [address] [place] [address] * HIV-1/-2 Ag and Ab Scrn, Plasma (07/17/2023 11:49 AM REAL ESTATE BRANCH MANAGER) HIV Ag/Ab Scrn, P Negative Negative 07/18/2023 1:58 PM REAL ESTATE BRANCH MANAGER [facility] Comment: Negative result does not rule out HIV infection. If exposure to HIV infection occurred <14 days ago, contact the laboratory to request addition of HIV-1/HIV-2 RNA detection , Plasma (HPP12). HIV-1 p24 Ag Scrn, P Negative Negative 07/18/2023 1:58 PM REAL ESTATE BRANCH MANAGER [facility] Comment: Negative result does not rule out HIV infection. If exposure to HIV infection occurred <14 days ago, contact the laboratory to request addition of HIV-1/HIV-2 RNA detection , Plasma (HPP12). HIV-1 Ab Scrn, P Negative Negative 07/18/2023 1:58 PM REAL ESTATE BRANCH MANAGER [facility] Comment: Negative result does not rule out HIV infection. If exposure to HIV infection occurred <14 days ago, contact the laboratory to request addition of HIV-1/HIV-2 RNA detection , Plasma (HPP12). HIV-2 Ab Scrn, P Negative Negative 07/18/2023 1:58 PM REAL ESTATE BRANCH MANAGER [facility] Comment: Negative result does not rule out HIV infection. If exposure to HIV infection occurred <14 days ago, contact the laboratory to request addition of HIV-1/HIV-2 RNA detection , Plasma (HPP12). Blood (Blood, Venous) 07/17/2023 11:49 AM REAL ESTATE BRANCH MANAGER 07/18/2023 11:06 AM REAL ESTATE BRANCH MANAGER Alison Urbina APRN, C.N.P. LAB MICROBIOLOGY - BLOOD ORDERABLES Final Result Performing Organization Address [facility] [[email or web address]] Co de Phone Number [facility] [address] [place] [phone], [facility] in [address] [address] * HPV with Genotyping, PCR, ThinPrep (05/10/2023 10:43 AM REAL ESTATE BRANCH MANAGER) HPV with Genotyping, ThinPrep, PCR Negative Negative 05/11/2023 6:24 PM REAL ESTATE BRANCH MANAGER [facility] Comment: Negative for high risk HPV by nucleic acid amplification. The following high risk HPV types were not detected: 16, 18, 31, 33, 35, 39, 45, 51, 52, 56, 58, 59, 66, and 68 This result does not rule out HPV in the patient, as the sensitivity of the test depends on the timing of the specimen collection and the quality of the specimen. Result should be correlated with patient's history, clinical presentation, and SCHOOL BUS DRIVER/CUSTODIAN cytology report. 05/10/2023 10:4 3 AM REAL ESTATE BRANCH MANAGER 05/11/2023 9:06 AM REAL ESTATE BRANCH MANAGER Alison Urbina APRN, C.N.P. LAB MICROBIOLOGY - GENERAL ORDERABLES Final Result Performing Organization Address City/[facility] [[email or web address]] Co de Phone Number [facility] [address] [place] [phone], [place] [facility] [address] [place] [phone] * Lipid Panel (03/12/2020 12:25 PM CDT) Cholesterol, Total 153 mg/dL 2019 12:51 PM CDT OWAT Comment: ----REFERENCE VALUE---- Desirable: < 200 Borderline high: 200 - 239 High: > or = 240 Triglycerides 91 mg/dL 03/12/2020 12:51 PM CDT OWAT Comment: ----REFERENCE VALUE---- Normal: <150 Borderline high: 150-199 High: 200-499 Very high: > or =500 Cholesterol, HDL 61 >=50 mg/dL 03/12/20 20 12:51 PM CDT OWAT Calculated LDL 74 mg/dL 03/12/2020 12:51 PM CDT OWAT Comment: ----REFERENCE VALUE---- Desirable: <100 Above Desirable: 100-129 Borderline high: 130-159 High: 160-189 Very high: > or =190 Cholesterol, Non-HDL, Calculated 92 mg/dL 03/12/2020 12:51 PM CDT OWAT Comment: ----REFERENCE VALUE---- Desirable: <130 Above Desirable: 130-159 Borderline high: 160-189 High: 190-219 Very high: > or =220 Blood (Blood, Venous) 03/12/2020 12:25 PM CDT 03/12/2020 12:27 PM CDT us Kirit Flannery M.D. LAB BLOOD ADD-ON Final Resu lt [facility] [address] [place] [address], [place] [facility] [place] [address] [place] [address] from Last 3 Months or Most Recently Relevant to Health Maintenance Insurance [facility] Advance Directives For more information, please contact: [phone] * Full Code (Latest Code Status on File) Date Activated Date Inactivated Comments 08/23/2023 10:56 AM 08/23/2023 2:50 PM Question Answer Comments Full Code: Not Discussed Due to: Patient not available * Full Code Date Activated Date Inactivated Comments 08/23/2023 6:27 AM 08/23/2023 10:56 AM Question Answer Comments Full Code: Discussed Care Teams Scholarship Counselor Relationship Specialty Start Date End Date Kirit Flannery M.D. [address] [place] [phone] PCP - General 11/09/16
[2025-03-22 16:48] VITALS: BP 154/80; RESP 16; TEMP 36.9; O2SAT 98; BMI 41.1
--- NOTE | 2025-03-22 17:02 | CRLHL7_ITS ---
For Patients: As a result of the Century Cures Act, medical imaging exams and procedure reports are released immediately into your electronic medical record. You may view this report before your referring provider. If you have questions, please contact your health care provider. INDICATION: No heart tones Comparison ultrasound 03/04/2025 TECHNIQUE: Real-time lau-scale imaging of the pelvis was performed. FINDINGS: Sonographic imaging demonstrates a single intrauterine gestation. To 15 weeks crown-rump length measures 9.2 centimeters corresponding 1 day with AKIL of 09/12/2025. cardiac activity is not detected when previously documented. IMPRESSION: 1. Intrauterine gestation at 15 weeks 1 day with lack of cardiac activity detected when previously documented. Findings reflect demise. Dictated by Steffanie Blanca MD @ 03/22/2025 6:17:23 PM (Electronically Signed)
--- OUTSIDE RECORDS SUMMARY | 2025-03-22 17:16 | XMS_ITS | Clinical Summary ---
Author Organization [facility] Address [address] , [address] [place] [address] Phone Care Team Providers Care Patient Services Specialist Name Role Phone Eli Montalvo Unavailable Conditions or Problems Problem Name Problem Code Onset Date Status Entry Date Provider Comment Standard Description Annotate Tinnitus 19766433 (SNOMED CT) Resolved Giovanni Camp MD Tinnitus Tinnitus, right 68006545 (SNOMED CT) Active Giovanni Camp MD Tinnitus Hearing loss, right ear 864148746 (SNOMED CT) Active Lianna Dumont Hearing loss of right ear Tinnitus 22602727 (SNOMED CT) Removed Giovanni Camp MD Tinnitus Hearing loss - Sudden onset 61676545 (SNOMED CT) Inactive Giovanni Camp MD Hearing loss Unsteady gait - 1 episode 24747279 (SNOMED CT) Active Giovanni Camp MD Unsteady when walking Paresthesia - randomly every where 52697300 (SNOMED CT) Active Giovanni Camp MD Paresthesia Vertigo 064491597 (SNOMED CT) Active Giovanni Camp MD Vertigo Migraine headache with aura 9949065 (SNOMED CT) Active Giovanni Capm MD Migraine with aura Medications Medication Instructions Start Date Stop Date Generic Name NDC Provider LORAZEPAM 1 MG TABS by mouth : 1 mg 2 hour before MRI. May repeat as needed with 1 mg up to maximum of 3 mg before MRI. No driving or operate heavy machinery for 24 hour after taking this med 6 lorazepam [id number] Giovanni Camp MD Medications Administered No information [...] Procedures Code Procedure Name Date Entry Date [facility]-[id number] Documentation of current medicatio ns ORDERS Patient Instructions Vital Signs No information available. Immunizations No information available. Advance Directives No information available.
--- NOTE | 2025-03-22 17:18 | ED.GENADULT ---
HPI - General Adult General Chief complaint: OB/Uterine Contractions Stated complaint: Concerns Time Seen by Provider: 03/22/25 16:46 Source: patient Mode of arrival: ambulatory Limitations: no limitations History of Present Illness HPI narrative: 34-year-old female at 15 weeks gestation presents today because she was unable to find heart tones at home today. Patient has significant anxiety and checks heart tones regularly at home. Was unable to find them today. Otherwise has no other concerns. Patient states that she does not want to be placed on any medication for anxiety. Related Data Home Medications ?Medication ?Instructions ?Recorded ?Confirmed docosahexaenoic acid 200 mg mg PO 01/28/25 03/04/25 capsule ( DHA) progesterone micronized 200 mg 200 mg PO QHS 01/28/25 03/04/25 capsule ascorbic acid (vitamin C) 250 mg 250 mg PO QDAY 02/03/25 03/04/25 tablet cholecalciferol (vitamin D3) 50 50 mcg PO QDAY 02/03/25 03/04/25 mcg (2,000 unit) capsule (Vitamin D3) aspirin 81 mg chewable tablet 81 mg PO QDAY 03/04/25 03/04/25 Allergies Allergy/AdvReac Type Severity Reaction Status Date / Time clindamycin Allergy Intermediate Verified 02/25/25 08:46 Penicillins Allergy Intermediate Verified 02/25/25 08:46 Review of Systems Status of ROS: Reports: 6 or more systems reviewed and unremarkable except as noted in History and below [facility] Medical History Maternal care for other type scar from previous delivery ?O34.218 - Maternal care for other type scar from previous delivery (ICD-10) Elevated glucose ?R73.09 - Other abnormal glucose (ICD-10) Disruption, wound ?O90.0 - Disruption of delivery wound (ICD-10) Ophthalmic migraine ?G43.109 - Migraine with aura, not intractable, without status migrainosus (ICD-10) Anxiety and depression ?F41.9 - Anxiety disorder, unspecified (ICD-10) ?F32.A - Depression, unspecified (ICD-10) Cystic acne ?L70.0 - Acne vulgaris (ICD-10) Prediabetes ?R73.03 - Prediabetes (ICD-10) Iron deficiency ?E61.1 - Iron deficiency (ICD-10) Incomplete ?O03.4 - Incomplete spontaneous without complication (ICD-10) Miscarriage ?O03.9 - Complete or unspecified spontaneous without complication (ICD-10) Surgical History H/O dilation and curettage ?Z98.890 - Other specified postprocedural states (ICD-10) History of delivery ?Z98.891 - History of uterine scar from previous surgery (ICD-10) History of tonsillectomy ?Z90.89 - Acquired absence of other organs (ICD-10) Family History Father Heart disease Mother Breast cancer Diabetes Social History Narrative: . Lives in [place]. Has 2 kids. Works in [employer]. Exercises 2-4 times per week with walking. Denies tobacco use or illicit drug use. Rare alcohol use. What is your current living situation?: I presently have a place to live Problems where you live: no known problems In the past 12 months, utilities in danger of being shut off: no In past 12 months, lack of transportation kept you from medical appts, meetings, work, or getting things needed for daily living: no In the past 12 mos, have been you worried that your food would run out before you had money to buy more?: never true In the past 12 mos, the food you bought just didn't last and you didn't have money to buy more?: never true How often does anyone, including family, friends and others, physically hurt you: never How often does anyone, including family, friends and others, insult or talk down to you: never How often does anyone, including family, friends and others, threaten you with harm: never How often does anyone, including family, friends and others, scream or curse at you: never Exam Narrative: Exam Narrative: Well-nourished well-developed patient, tearful. Alert and oriented. Answers questions appropriately. HEENT: Normocephalic atraumatic. Pupils are equally round reactive to light. Extraocular muscles are intact. Conjunctivae are moist without any icterus noted. Moist mucous membranes. Abdomen: Soft and nontender nondistended with normal bowel sounds. Gravid. Extremities: Bilateral lower extremities are without edema. Skin: Well perfused without any obvious rashes. Const: Vital Signs, click to edit/add: Vital Signs - 24 hr 03/22/25 16:48 Temperature 98.5 F Respiratory Rate 16 Blood Pressure [Ri ght Upper Arm] 154/80 H Pulse Oximetry 98 Oxygen Delivery Me thod Room Air Course Course ED Course: We were unable to get Doppler heart tones in the ED. Quick bedside ultrasound was done I was not able to visualize heart beat. Therefore coroner technician was called in for an official ultrasound. Per coroner technician, no heart beat was detected. Discussed with Dr. Cervantes, who recommends follow-up in the clinic tomorrow. Vital Signs Vital signs: Initial Vital Signs Temperature 98.5 F 03/22/25 16:48 Temperature Source Temporal Artery Scan 03/22/25 16:48 Respiratory Rate 16 03/22/25 16:48 Blood Pressure 154/80 H 03/22/25 16:48 Blood Pressure Mean 104 03/22/25 16:48 Blood Pressure Position Sitting 03/22/25 16:48 Pulse Oximetry 98 03/22/25 16:48 Oxygen Delivery Method Room Air 03/22/25 16:48 Vital Signs Temperature 98.5 F 03/22/25 16:48 Respiratory Rate 16 03/22/25 16:48 Blood Pressure 154/80 H 03/22/25 16:48 Pulse Oximetry 98 03/22/25 16:48 Oxygen Delivery Method Room Air 03/22/25 16:48 Temperature 98.5 F 03/22/25 16:48 Respiratory Rate 16 03/22/25 16:48 Blood Pressure 154/80 H 03/22/25 16:48 Pulse Oximetry 98 03/22/25 16:48 Oxygen Delivery Method Room Air 03/22/25 16:48 Medical Decision Making MDM Narrative Medical decision making narrative: 34-year-old female with a demise at 15 weeks. She will follow-up with OBGYN tomorrow to discuss next steps. Imaging Data US - abdomen: Attestation: I have reviewed the pertinent imaging results. Radiologist's impression: INDICATION: No heart tones Comparison ultrasound 03/04/2025 TECHNIQUE: Real-time lau-scale imaging of the pelvis was performed. FINDINGS: Sonographic imaging demonstrates a single intrauterine gestation. To 15 weeks crown-rump length measures 9.2 centimeters corresponding 1 day with AKIL of 09/12/2025. cardiac activity is not detected when previously documented. IMPRESSION: 1. Intrauterine gestation at 15 weeks 1 day with lack of cardiac activity detected when previously documented. Findings reflect demise. Discharge Plan Discharge Clinical Impression: demise, less than 22 weeks Patient Disposition: Home, Self-Care Condition: Stable Additional Instructions: You should follow-up in the [facility] tomorrow to discuss next steps. Return to the emergency department if you develop bleeding and cramping before then. Prescriptions: No Action DHA 200 mg capsule PO progesterone micronized 200 mg capsule 200 mg PO QHS aspirin 81 mg tablet,chewable 81 mg PO QDAY ascorbic acid (vitamin C) 250 mg tablet 250 mg PO QDAY cholecalciferol (vitamin D3) [Vitamin D3] 50 mcg (2,000 unit) capsule 50 mcg PO QDAY Follow Up/Referrals: Provider,Not a Local [Primary Care Provider, Family Practice] Stand Alone Forms: MyHealth Info Instructions
== END 2025-03-22 18:40 | disposition home or self-care (01) ==
PROVIDERS: Emergency Provider Family Medicine
DX: O36.4XX0 Maternal care for intrauterine death, not applicable or unspecified (principal); Z3A.15 15 weeks gestation of pregnancy
CPT/HCPCS: 76815; 99283; 99284